=== PATIENT | female | born 1995 | race American Indian/Alaskan Native ===

== ENCOUNTER 2021-05-04 10:26 | Outpatient (CLI) | payer BC, MEDICAID ==
[2021-05-04 11:19] VITALS: BP 112/67
[2021-05-04] MEDS ORDERED: METOCLOPRAMIDE 10 MG/2 ML INJ IV ONE (11:19)
[2021-05-04] MEDS ORDERED: FAMOTIDINE 20 MG/2 ML INJ IV ONE (11:19)
[2021-05-04] MEDS ORDERED: BICITRA ORAL LIQD 30ML PO ONE (11:19)
[2021-05-04] MEDS ORDERED: LACTATED RINGERS 1,000 ML IV SCH (11:30)
[2021-05-04] MEDS ORDERED: LACTATED RINGERS 500 ML IV ONE ×2 (11:51→14:18)
[2021-05-04] MEDS ORDERED: OXYTOCIN DRIP 30 UNITS/500 ML BAG IV SCH (12:00)
[2021-05-04] MEDS ORDERED: ceFAZolin/Water 2 GM/20 ML 2 GM/20 ML SYRINGE IV NR ×2 (12:00→13:00)
[2021-05-04] MEDS ORDERED: ONDANSETRON 4 MG/2 ML INJ IV ONE (12:16)
[2021-05-04] MEDS ORDERED: ACETAMINOPHEN 500 MG TAB PO ONE (12:16)
[2021-05-04 13:39] LABS: Bilirubin,Urine NEG (Negative); Blood,Urine NEG (Negative); Color,Urine Straw (Yellow); Mucus,Urine FEW /HPF; Protein,Urine <15 mg/dL mg/dL (Negative); RBC,Urine < 1.0 /HPF (0.0-6.0); Urobilinogen,Urine < 2.0 mg/dL (<2.0)
== END 2021-05-04 14:30 | disposition home or self-care (01) ==
LOC: TRG 10:26 → APU 10:28 → TRG 14:30
PROVIDERS: ATTEND Obstetrics & Gynecology
DX: O47.02 False labor before 37 completed weeks of gestation, second trimester (principal); Z3A.24 24 weeks gestation of pregnancy
CPT/HCPCS: 59025; 81001; 96361; 96365; 96367; J0690; J2405; J7120; 96360; 96374

== ENCOUNTER 2021-05-29 12:12 | Outpatient (CLI) | payer BC ==
[2021-05-29 12:40] VITALS: BP 117/78
[2021-05-29] MEDS ORDERED: LACTATED RINGERS 500 ML IV ONE (13:17)
[2021-05-29] MEDS ORDERED: LACTATED RINGERS 1,000 ML ONE (13:19)
[2021-05-29] MEDS ORDERED: BETAMET ACET/BETAMET NA PH 6 MG/ML INJ 5 ML MDV IM ONE (13:30)
[2021-05-29] MEDS ORDERED: NIFEdipine*For Tocolysis only* 10 MG CAPSULE PO ONE (15:00)
== END 2021-05-29 14:40 | disposition home or self-care (01) ==
LOC: TRG 12:12 → APU 12:14 → TRG 14:40
PROVIDERS: ATTEND Obstetrics & Gynecology
DX: O62.9 Abnormality of forces of labor, unspecified (principal); Z3A.27 27 weeks gestation of pregnancy
CPT/HCPCS: 59025; 96372; J0702; J7120; 96360

== ENCOUNTER 2021-05-30 19:35 | Outpatient (CLI) | payer BC ==
[2021-05-30 20:25] VITALS: BP 117/67
[2021-05-30] MEDS ORDERED: BETAMET ACET/BETAMET NA PH 6 MG/ML INJ 5 ML MDV IM ONE (20:26)
== END 2021-05-30 20:50 | disposition home or self-care (01) ==
LOC: TRG 19:35
PROVIDERS: ATTEND Obstetrics & Gynecology
DX: Z34.92 Encounter for supervision of normal pregnancy, unspecified, second trimester (principal); Z3A.27 27 weeks gestation of pregnancy
CPT/HCPCS: 59025; 96372; J0702

== ENCOUNTER 2021-07-12 22:41 | Outpatient (CLI) | payer BC, MEDICAID ==
[2021-07-12 23:27] VITALS: BP 121/80
[2021-07-12] MEDS ORDERED: LACTATED RINGERS 1,000 ML IV ONE (23:38)
[2021-07-12 23:54] LABS: Bilirubin,Urine NEG (Negative); Blood,Urine NEG (Negative); Color,Urine Straw (Yellow); Mucus,Urine FEW /HPF; Protein,Urine <15 mg/dL mg/dL (Negative); Urobilinogen,Urine < 2.0 mg/dL (<2.0)
[2021-07-13 00:01] LABS: Amphetamine Screen,Urine PRESUMPTIVE NEGATIVE; Benzodiazepines Screen,Urine PRESUMPTIVE NEGATIVE; Cannabinoid Screen,Urine PRESUMPTIVE NEGATIVE; Cocaine Screen,Urine PRESUMPTIVE NEGATIVE; Methadone Screen,Urine PRESUMPTIVE NEGATIVE; Opiate Screen,Urine PRESUMPTIVE NEGATIVE
== END 2021-07-13 01:13 | disposition home or self-care (01) ==
LOC: TRG 22:41 → APU 22:43 → TRG 07-13 01:13
PROVIDERS: ATTEND Obstetrics & Gynecology
DX: O26.893 Other specified pregnancy related conditions, third trimester (principal); R10.9 Unspecified abdominal pain; Z3A.33 33 weeks gestation of pregnancy; Z87.891 Personal history of nicotine dependence
CPT/HCPCS: 59025; 80307; 81001; 96360; J7120